=== PATIENT | female | born 1960 | race Caucasian/White ===

== ENCOUNTER 2023-05-07 12:19 | Outpatient (CLI) | payer BC | END 2023-05-07 12:20 | disposition home or self-care (01) | LOC: CSHULT 12:19 | PROVIDERS: ATTEND Internal Medicine Gastroenterology | DX: K21.9 Gastro-esophageal reflux disease without esophagitis (principal); R10.12 Left upper quadrant pain; Z12.11 Encounter for screening for malignant neoplasm of colon; R74.01 Elevation of levels of liver transaminase levels | CPT/HCPCS: 76705 ==

== ENCOUNTER 2023-05-15 09:33 | Outpatient (CLI) | payer BC | END 2023-05-15 09:34 | disposition home or self-care (01) | LOC: CSHMAMMO 09:33 | PROVIDERS: ATTEND Family Medicine | DX: Z12.31 Encounter for screening mammogram for malignant neoplasm of breast (principal); Z80.3 Family history of malignant neoplasm of breast | CPT/HCPCS: 77063; 77067 ==

== ENCOUNTER 2023-05-23 07:13 | Outpatient (CLI) | payer BC | END 2023-05-23 07:14 | disposition home or self-care (01) | LOC: CSHCT 07:13 | PROVIDERS: ATTEND Family Medicine | DX: R10.12 Left upper quadrant pain (principal); K76.0 Fatty (change of) liver, not elsewhere classified; Z90.49 Acquired absence of other specified parts of digestive tract; Z90.710 Acquired absence of both cervix and uterus | CPT/HCPCS: 74176 ==

== ENCOUNTER 2024-12-29 09:32 | Outpatient (CLI) | payer BC | END 2024-12-29 09:33 | disposition home or self-care (01) | LOC: CSHMAMMO 09:32 | PROVIDERS: ATTEND Family Medicine | DX: Z13.21 Encounter for screening for nutritional disorder (principal); Z80.3 Family history of malignant neoplasm of breast | CPT/HCPCS: 77063; 77067 ==